=== PATIENT | male | born 2005 | race Caucasian/White ===

== ENCOUNTER 2024-07-02 22:25 | Emergency (ER) | payer BC | END 2024-07-02 23:08 | disposition home or self-care (01) | LOC: ERS 22:25 | DX: S62.630A Displaced fracture of distal phalanx of right index finger, initial encounter for closed fracture (principal); M20.011 Mallet finger of right finger(s); W23.0XXA Caught, crushed, jammed, or pinched between moving objects, initial encounter; Y93.61 Activity, american tackle football | CPT/HCPCS: 99283 ==